=== PATIENT | female | born 1995 | race Caucasian/White ===

== ENCOUNTER → 2020-10-03 16:42 | Outpatient (CLI) | payer OTHER, SELFPAY ==
[2020-10-04 06:45] LABS: Hepatitis BE Antigen Negative (Negative)
[2020-10-04 07:36] LABS: RPR Screen Non Reactive (Non Reactive)
[2020-10-04 13:18] LABS: HIV 1 & 2 Ab/Ag 4th Gen Combo NEGATIVE (NEGATIVE); Hep C Virus Ab w/Reflex Quant NEGATIVE s/c (NEGATIVE)
== END ==
PROVIDERS: PCP Nurse Practitioner Family; Referring Provider Obstetrics & Gynecology; Visit Provider Obstetrics & Gynecology
DX: Z20.2 Contact with and (suspected) exposure to infections with a predominantly sexual mode of transmission (principal)
CPT/HCPCS: 36415; 86592; 86803; 87350; 87389

== ENCOUNTER → 2020-10-15 11:26 | Outpatient (CLI) | payer OTHER, SELFPAY ==
[2020-10-15 14:03] LABS: Alanine Aminotransferase 18 IU/L (<35); Albumin 4.7 g/dL (3.5-5.0); Albumin Globulin Ratio 1.8 (1.0-2.8); Alkaline Phosphatase 42 U/L (38-126); Aspartate Aminotransferase 30 IU/L (14-36); Bilirubin Total 1.5 mg/dL (0.2-1.3); Bilirubin Unconjugated 1.4 mg/dL (0.0-1.1); Globulin 2.6 g/dL (1.7-4.1); HEMOLYSIS < 15 (0-50); Total Protein 7.3 g/dL (6.3-8.2)
[2020-10-15 14:27] LABS: Urine N gonorrhoeae NOT DETECTED
[2020-10-15 14:49] LABS: Urine Chlamydia NOT DETECTED
[2020-10-15 16:01] LABS: COVID19 -Nasal RAPID Negative (Negative)
== END ==
PROVIDERS: Physician Assistant; PCP Nurse Practitioner Family; Referring Provider Obstetrics & Gynecology; Visit Provider Obstetrics & Gynecology
DX: Z20.822 Contact with and (suspected) exposure to COVID-19 (principal); Z20.2 Contact with and (suspected) exposure to infections with a predominantly sexual mode of transmission; R17 Unspecified jaundice
CPT/HCPCS: 36415; 80076; 87491; 87591; 87635

== ENCOUNTER → 2020-10-16 13:40 | Outpatient (CLI) | payer OTHER, SELFPAY ==
--- NOTE | 2020-10-16 13:59 | DI.ECHO.S_ITS ---
:HEART DISEASE : :Ordering Physician: MIKE, : :KENDALL Performed By: Shelly Odom : :Referring: KENDALL MCKEON : + + Interpretation Summary The left ventricle is normal in size and wall thickness. The ejection fraction is estimated to be 55-60%. The right ventricular systolic function is normal. No significant valvular disease. There is no pericardial effusion. The IVC is dilated (diameter is greater than 2.1 cm) yet it collapses greater than 50% with a sniff. This suggests a right atrial pressure of 8 mm Hg. Procedure: A two-dimensional transthoracic echocardiogram with color flow and Doppler was performed. The study quality was technically adequate. There is no prior echocardiogram noted for this patient. The patient was in sinus bradycardia with heart rates between 50-60 bpm during the exam. Left Ventricle: The left ventricle is normal in size and wall thickness. There is no thrombus. The ejection fraction is estimated to be 55-60%. There are no focal wall motion abnormalities. Diastolic parameters suggest probable normal left ventricular diastolic function and normal filling pressures. Right Ventricle: The right ventricle is normal in size and function. The right ventricular systolic function is normal. Atria: The left atrial size is normal. Right atrial size is normal. There is no Doppler evidence for an interatrial shunt. Mitral Valve: The mitral valve leaflets appear to open well. The mitral valve is normal. There is mild mitral regurgitation. The mitral regurgitant jet is eccentrically directed. Aortic Valve: The aortic valve is trileaflet. The aortic valve opens well. There is no aortic valve stenosis. No aortic regurgitation is present. Tricuspid Valve: The tricuspid valve is normal in structure and function. There is trace tricuspid regurgitation. Pulmonary artery pressures cannot be estimated because of the lack of a measurable TR jet velocity but the IVC suggests a CVP of around 8 mmHg. Pulmonic Valve: The pulmonic valve leaflets are thin and pliable; valve motion is normal. There is mild pulmonic regurgitation. Great Vessels: The aortic root is normal size. The dimensions of the ascending aorta are normal. The IVC is dilated (diameter is greater than 2.1 cm) yet it collapses greater than 50% with a sniff. This suggests a right atrial pressure of 8 mm Hg. Pericardium/ Pleura There is no pericardial effusion. There is no pleural effusion. MMode/2D Measurements & Calculations LVIDd: 5.6 cm LVOT diam: 2.1 cm LVIDs: 3.5 cm Ao root diam: 2.5 cm FS: 37.9 % asc Aorta Diam: 2.7 cm IVSd: 0.52 cm Ao Arch Diam (Prox Trans): 2.3 cm LVPWd: 0.65 cm LV chapin. diameter/BSA (cm/m^2): 3.4 LV sys. diameter/BSA (cm/m^2): 2.1 LA A2 area: 20.7 cm2 RA long axis: 4.5 cm LA A4 area: 18.8 cm2 RA area: 14.1 cm2 LA length (vol): 5.0 cm RA vol: 38.0 ml LA vol: 66.1 ml RA : 23.0 ml/m2 LA vol index: 39.9 ml/m2 IVC diam: 2.6 cm RVD1 (basal): 4.3 cm TAPSE: 2.7 cm Doppler Measurements & Calculations Ao V2 max: 140.2 cm/sec LVOT Max Jose Rafael: 116.9 cm/sec Ao V2 mean: 94.3 cm/sec LV V1 max P.5 mmHg Ao max P.9 mmHg LV V1 VTI: 21.5 cm Ao mean P.1 mmHg PEGGY(I,D): 2.6 cm2 Ao V2 VTI: 28.7 cm PEGGY(V,D): 2.9 cm2 sev ratio: 0.75 PEGGY indexed to BSA (cm^2/m^2): 1.6 MV E max jose rafael: 63.0 cm/sec PA V2 max: 92.3 cm/sec MV A max jose rafael: 42.5 cm/sec PA V2 mean: 64.5 cm/sec MV E/A: 1.5 PA mean P.8 mmHg Med Peak E' Jose Rafael: 13.1 cm/sec PA pr(Accel): 27.6 mmHg E/E' med: 4.8 Lat Peak E' Jose Rafael: 22.4 cm/sec E/E' lat: 2.8 E/e' average: 3.8 MV dec time: 0.23 sec SV(LVOT): 76.0 ml Reading Physician:06:25 PM
--- NOTE | 2020-10-16 19:08 | DI.NM.S_ITS ---
DATE OF SERVICE: 10/16/2020 PROCEDURE PERFORMED: Exercise stress test. INDICATION: Exertional chest pain. CARDIAC STRESS: The patient underwent exercise stress test under the supervision of an attending staff. She walked on Corey protocol for 18 minutes and 12 seconds, achieved a maximum heart rate of 190, which was 98 percent of target heart rate. Baseline blood pressure 100/60 mmHg. Peak blood pressure 180/90 mmHg. The patient achieved 16.9 METs of workload and functional aerobic impairment -75 percent. No anginal symptoms. Baseline EKG revealed sinus rhythm with mild sinus bradycardia, at a rate of about 51 beats per minute. During stress, no ischemic changes or significant arrhythmias seen. CONCLUSION: Exercise stress test is negative for inducible ischemia. Excellent exercise capacity. The patient achieved 16.9 METs of workload and functional aerobic impairment -75 percent. Normal hemodynamic response. No significant arrhythmias. No anginal symptoms. Overall, low-risk study. Rosa Duvall - CAYLA/herber/douglas doc#: [id number]/job#: [id number] dd: 10/16/2020 18:02:00 dt: 10/16/2020 18:47:00 DICTATING /COPIES TO: Allegra Landis MD COPIES MNE: MANUELA;
== END ==
PROVIDERS: PCP Nurse Practitioner Family; Referring Provider Nurse Practitioner Family; Visit Provider Nurse Practitioner Family
DX: R07.9 Chest pain, unspecified (principal); R00.1 Bradycardia, unspecified
CPT/HCPCS: 93016; 93017; 93018; 93306

== ENCOUNTER → 2020-10-23 11:29 | Outpatient (CLI) | payer OTHER, SELFPAY ==
--- NOTE | 2020-11-12 08:56 | PM.CARDMON.1 ---
Pipe [employer]orem[employer] Report Referral & Results Date Patient Seen: 10/23/20 Requesting provider: John Christopher Duration of monitoring (days): 7 Diary information: There were 9 patient triggered events and 1 patient diary entry Patient triggered events were associated sinus rhythm and PACs Diary event was associated with sinus rhythm only Data: Minimum heart rate was 31 beats per minute at 03:54 on 10/28/2020 Maximum heart rate was 187 beats per minute at 19:15 on 10/23/2020 Less than 1% of identified beats were ventricular or supraventricular ectopic in origin, which would classify them as rare. 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
== END ==
PROVIDERS: PCP Nurse Practitioner Family; Referring Provider Nurse Practitioner Family; Visit Provider Nurse Practitioner Family
DX: R00.1 Bradycardia, unspecified (principal); R07.9 Chest pain, unspecified
CPT/HCPCS: 93242; 93244

== ENCOUNTER → 2020-11-06 16:21 | Outpatient (CLI) | payer OTHER, SELFPAY ==
--- NOTE | 2020-11-06 16:24 | DI.US.S_ITS ---
PROCEDURE: US ABDOMEN COMPLETE INDICATIONS: elevated bili TECHNIQUE: Real-time scanning was performed of the abdominal and retroperitoneal organs, with image documentation. COMPARISON: None. FINDINGS: Liver: Liver is normal in size and homogeneous in echotexture. Gallbladder: No findings of gallstones or sludge are seen. The gallbladder wall is not thickened, measuring 3 mm or less. No specific pericholecystic fluid is seen. The sonographic Hodgson sign is negative. Biliary ducts: Intrahepatic bile ducts are non-dilated. Extrahepatic bile duct caliber measures 3 mm. Normal is 6-7 mm or less in diameter, or 10 mm or less post-cholecystectomy. Pancreas: Visualized portions of the pancreas are sonographically normal. Spleen: Spleen is normal in size and homogeneous in echotexture. Kidneys: Bowel gas obscures the inferior aspect of the right kidney. The left kidney measures 11.3 cm long. No hydronephrosis or nephrolithiasis. No solid masses. Aorta: Visualized aorta is normal in caliber at less than 3 cm. Iliacs: Proximal common iliac arteries are normal in caliber at less than 2.5 cm. IVC: Intrahepatic inferior vena cava is patent. The IVC is prominent, measuring 3.3 cm, which is not regarded to be frankly pathologic. Miscellaneous: No free abdominal fluid. IMPRESSION: The gallbladder demonstrates a normal sonographic appearance. No biliary dilatation is seen. No significant liver abnormality can be seen. Limited evaluation of the right kidney, with the inferior aspect obscured by bowel gas. Dictated by: Sy De La Vega M.D. on 11/06/2020 at 16:51 Approved by: Sy De La Vega M.D. on 11/06/2020 at 16:53
== END ==
PROVIDERS: PCP Nurse Practitioner Family; Referring Provider Nurse Practitioner Family; Visit Provider Nurse Practitioner Family
DX: R17 Unspecified jaundice (principal)
CPT/HCPCS: 76700

== ENCOUNTER → 2021-05-22 11:18 | Outpatient (CLI) | payer SELFPAY ==
--- NOTE | 2021-05-22 11:31 | DI.RAD.S_ITS ---
PROCEDURE: XR CHEST 2V INDICATIONS: + quant gold TECHNIQUE: 2 views of the chest were acquired. COMPARISON: None. FINDINGS: Surgical changes and devices: None. Lungs and pleura: Lungs are clear. No pleural effusions or pneumothorax. Mediastinum: Mediastinal contours are normal. Heart size is normal. Bones and chest wall: No suspicious bony abnormalities. Soft tissues appear unremarkable. IMPRESSION: No acute cardiopulmonary abnormality. Dictated by: Ceasar Estrada M.D. on 05/22/2021 at 12:36 Approved by: Ceasar Estrada M.D. on 05/22/2021 at 12:36
== END ==
PROVIDERS: Referring Provider Family Medicine; Visit Provider Family Medicine
DX: R76.12 Nonspecific reaction to cell mediated immunity measurement of gamma interferon antigen response without active tuberculosis (principal)
CPT/HCPCS: 71046

== ENCOUNTER → 2021-06-08 10:39 | Outpatient (CLI) | payer BC, SELFPAY ==
[2021-06-08 13:56] LABS: Alanine Aminotransferase 20 IU/L (<35); Albumin 4.6 g/dL (3.5-5.0); Albumin Globulin Ratio 1.6 (1.0-2.8); Alkaline Phosphatase 45 U/L (38-126); Aspartate Aminotransferase 31 IU/L (14-36); Bilirubin Total 1.8 mg/dL (0.2-1.3); Bilirubin Unconjugated 1.9 mg/dL (0.0-1.1); Globulin 2.8 g/dL (1.7-4.1); HEMOLYSIS 30 (0-50); Total Protein 7.4 g/dL (6.3-8.2)
[2021-06-10 04:47] LABS: QuantiFERON Mitogen Value >10.00 IU/mL (.); QuantiFERON Nil Value 0.02 IU/mL (.); QuantiFERON TB Gold Plus Negative (Negative); QuantiFERON TB1 Ag Value 0.06 IU/mL (.); QuantiFERON TB2 Ag Value 0.06 IU/mL (.)
== END ==
PROVIDERS: PCP Family Medicine; Referring Provider Nurse Practitioner Family; Visit Provider Nurse Practitioner Family
DX: R17 Unspecified jaundice (principal); R76.11 Nonspecific reaction to tuberculin skin test without active tuberculosis
CPT/HCPCS: 36415; 80076; 86480

== ENCOUNTER → 2021-07-13 14:54 | Outpatient (CLI) | payer OTHER, SELFPAY ==
[2021-07-13 17:11] LABS: HIV 1 & 2 Ab/Ag 4th Gen Combo NEGATIVE (NEGATIVE)
[2021-07-13 18:39] LABS: Urine N gonorrhoeae NOT DETECTED
[2021-07-13 18:44] LABS: Urine Chlamydia NOT DETECTED
[2021-07-14 05:36] LABS: HBsAg Screen Negative (Negative); Hepatitis A Antibody IgM Negative (Negative); Hepatitis B Core Antibody IgM Negative (Negative); Hepatitis C Antibody <0.1 s/co ratio (0.0-0.9)
[2021-07-14 07:12] LABS: RPR Screen Non Reactive (Non Reactive)
== END ==
PROVIDERS: PCP Family Medicine; Referring Provider Family Medicine; Visit Provider Family Medicine
DX: Z11.3 Encounter for screening for infections with a predominantly sexual mode of transmission (principal)
CPT/HCPCS: 36415; 80074; 86592; 87389; 87491; 87591

== ENCOUNTER → 2022-10-01 09:57 | Outpatient (CLI) | payer OTHER, SELFPAY ==
[2022-10-01 10:45] LABS: Add Manual Diff / Slide Review NO; Basophils Absolute Auto 0 /uL (0-100); Basophils Percent Auto 0.6 % (0-2); Eosinophils Absolute Auto 100 /uL (0-450); Eosinophils Percent Auto 1.2 % (2-4); Hematocrit 42.9 % (36-46); Hemoglobin 15.1 g/dL (12.0-16.0); Lymphocytes Absolute Auto 2000 /uL (1100-4500); Lymphocytes Percent Auto 39.8 % (25-40); Mean Corpuscular HGB Conc 35.1 % (30-36); Mean Corpuscular Hemoglobin 32.1 PG (26-34); Mean Corpuscular Volume 91.3 fL (80-100); Monocytes Absolute Auto 500 /uL (0-900); Monocytes Percent Auto 9.9 % (3-14); Neutrophils Absolute Auto 2400 /uL (1500-7000); Neutrophils Percent Auto 48.5 % (50-75); Platelet Count 228 X10^3/uL (150-400); Red Cell Distribution Width 12.7 % (11.6-14.8); White Blood Cell Count 4.9 X10^3/uL (4.5-11.0)
[2022-10-01 10:55] LABS: Alanine Aminotransferase 19 IU/L (<35); Albumin 4.7 g/dL (3.5-5.0); Albumin Globulin Ratio 1.3 (1.0-2.8); Alkaline Phosphatase 37 U/L (38-126); Aspartate Aminotransferase 28 IU/L (14-36); BUN Creatinine Ratio 18.8 (6-22); Bilirubin Total 2.5 mg/dL (0.2-1.3); Blood Urea Nitrogen 13 mg/dL (7-17); Calcium 9.4 mg/dL (8.4-10.2); Carbon Dioxide 25 mmol/L (22-32); Chloride 102 mmol/L (98-107); Cholesterol 183 mg/dL (140-199); Estimated Glomerular Filt Rate > 60 mL/min (>60); Globulin 3.6 g/dL (1.7-4.1); Glucose 83 mg/dL (70-100); HDL Cholesterol 79 mg/dL (40-60); HEMOLYSIS < 15 (0-50); LDL Cholesterol Calculated 93 mg/dL (<100); Potassium 4.5 mmol/L (3.4-5.1); Sodium 137 mmol/L (137-145); Total Protein 8.3 g/dL (6.3-8.2); Triglycerides 53 mg/dL (35-150)
[2022-10-01 11:35] LABS: TSH w/ Reflex to FT4 1.14 uIU/mL (0.47-4.68)
== END ==
PROVIDERS: PCP Family Medicine; Referring Provider Family Medicine; Visit Provider Family Medicine
DX: I34.0 Nonrheumatic mitral (valve) insufficiency (principal); R00.1 Bradycardia, unspecified; R17 Unspecified jaundice; Z00.00 Encounter for general adult medical examination without abnormal findings
CPT/HCPCS: 36415; 80053; 80061; 84443; 85025

== ENCOUNTER → 2022-10-07 10:26 | Outpatient (CLI) | payer OTHER, SELFPAY ==
--- NOTE | 2022-10-07 10:27 | DI.US.S_ITS ---
PROCEDURE: US ABDOMEN LIMITED INDICATIONS: RIGHT UPPER QUADRANT PAIN TECHNIQUE: Real-time scanning was performed of the abdominal and retroperitoneal organs, with image documentation. COMPARISON: [facility], US, US ABDOMEN COMPLETE, 07/31/2021, 7:10. [facility], US, US ABDOMEN COMPLETE, 11/06/2020, 17:04. FINDINGS: Liver: Liver is normal in size and homogeneous in echotexture. Gallbladder: Within normal limits. No gallstones or gallbladder wall thickening. Biliary ducts: Intrahepatic bile ducts are non-dilated. Extrahepatic bile duct caliber measures 3.4 mm. Normal is 6-7 mm or less in diameter, or 10 mm or less post-cholecystectomy. Pancreas: Visualized portions of the pancreas are sonographically normal. IVC: Intrahepatic inferior vena cava is patent. IMPRESSION: The gallbladder is within normal limits. No gallstones or gallbladder wall thickening. No intra or extrahepatic biliary ductal dilatation. Dictated by: Reji Arndt M.D. on 10/07/2022 at 11:25 Approved by: Reji Arndt M.D. on 10/07/2022 at 11:27
== END ==
PROVIDERS: PCP Family Medicine; Referring Provider Family Medicine; Visit Provider Family Medicine
DX: R10.11 Right upper quadrant pain (principal)
CPT/HCPCS: 76705

== ENCOUNTER → 2023-02-12 12:29 | Outpatient (CLI) | payer OTHER, SELFPAY ==
[2023-02-12 14:49] LABS: Alanine Aminotransferase 16 IU/L (<35); Albumin 4.7 g/dL (3.5-5.0); Albumin Globulin Ratio 1.4 (1.0-2.8); Alkaline Phosphatase 41 U/L (38-126); Aspartate Aminotransferase 29 IU/L (14-36); Bilirubin Total 1.4 mg/dL (0.2-1.3); Bilirubin Unconjugated 1.2 mg/dL (0.0-1.1); Globulin 3.3 g/dL (1.7-4.1); HEMOLYSIS < 15 (0-50)
== END ==
PROVIDERS: PCP Family Medicine; Referring Provider Internal Medicine Gastroenterology; Visit Provider Internal Medicine Gastroenterology
DX: R17 Unspecified jaundice (principal)
CPT/HCPCS: 36415; 80076

== ENCOUNTER → 2024-01-30 16:22 | Outpatient (CLI) | payer OTHER, SELFPAY ==
--- NOTE | 2024-01-30 16:24 | DI.RAD.S_ITS ---
PROCEDURE: XR KNEE LT 3V INDICATIONS: Left knee pain TECHNIQUE: 3 views of the knee were acquired. COMPARISON: None. FINDINGS: Bones: No fractures or dislocations. No suspicious bony lesions. Soft tissues: No joint effusion. No suspicious soft tissue calcifications. IMPRESSION: No acute bony abnormality or significant effusion. Dictated by: Mindy Luis MD, PhD on 01/31/2024 at 10:44 Approved by: Mindy Luis MD, PhD on 01/31/2024 at 10:45
== END ==
PROVIDERS: PCP Family Medicine; Referring Provider Nurse Practitioner Family; Visit Provider Nurse Practitioner Family
DX: S86.912A Strain of unspecified muscle(s) and tendon(s) at lower leg level, left leg, initial encounter (principal); X58.XXXA Exposure to other specified factors, initial encounter
CPT/HCPCS: 73562

== ENCOUNTER → 2024-02-27 16:37 | Outpatient (CLI) | payer OTHER, SELFPAY ==
--- NOTE | 2024-02-27 16:38 | DI.MRI.S_ITS ---
PROCEDURE: MR KNEE LT WO CON INDICATIONS: LT knee oint laxity and swelling after injury 01/28 TECHNIQUE: Noncontrast sagittal PD fast spin echo and T2 fast spin echo with fat saturation, sagittal 3-D FLASH with fat saturation; coronal T1 spin echo and PD fast spin echo with fat saturation, and axial PD fast spin echo with fat saturation through the knee. COMPARISON: [facility], CR, XR KNEE LT 3V, 01/30/2024, 16:25. FINDINGS: Image quality: Excellent. Bones: Confluent marrow edema is present throughout the lateral tibial plateau and proximal tibial metadiaphysis (13/21) as well as the lateral femoral condyle (8/15). There are no identifiable T1 hypointense fracture lines. There is mild anterior translation of the tibia with respect to the distal femur. Joints: There is small-moderate knee joint effusion. There is no significant knee osteoarthritis. Kang's cyst: None. Menisci: There is mild intermediate signal at the posterior horn of the medial meniscus along with mild discontinuity at the superior popliteomeniscal fascicle (10/10). There is an obliquely oriented tear of the body of the lateral meniscus extending toward the inferior articular surface (/). Additionally, the posterior root attachment of the lateral meniscus is not identified in its entirety (13/25). Cruciate ligaments: There is a full-thickness midsubstance tear of the anterior cruciate ligament (10/17). The posterior cruciate ligament is normal. Collateral ligaments: There is a full-thickness tear of the deep medial meniscofemoral ligament at the femoral attachment point (13/20; 8/16). There is partial thickness tearing of the medial patellofemoral ligament at the femoral attachment point (8/17). The medial collateral ligament complex is otherwise normal. The lateral collateral ligament complex is normal. Popliteus Muscle/Tendon: The popliteus muscle and tendon are normal. Extensor mechanism: The quadriceps tendon is normal. The patellar tendon is normal, although with small entheseal calcifications at the anterior tibial tuberosity (9/19). The medial and lateral patellar retinacular attachments are normal. Articular cartilage: There is no significant articular cartilage defect. Other: No other acute findings. IMPRESSION: 1. Full-thickness anterior cruciate ligament tear with associated small-moderate joint effusion, and microtrabecular fractures at the distal femur and proximal tibia. 2. Possible (slice thickness and volume averaging limit confirmation) ramp lesion at the posterior horn of the medial meniscus along with full-thickness tearing at the deep medial meniscofemoral ligament. 3. Oblique tear of the body of the lateral meniscus with possible additional tearing at the posterior horn-posterior root attachment. 4. Partial thickness tearing of the medial patellofemoral ligament at the femoral attachment point. Dictated by: Doug Calabrese M.D. on 02/28/2024 at 12:18 Approved by: Doug Calabrese M.D. on 02/28/2024 at 12:37
== END ==
PROVIDERS: PCP Family Medicine; Referring Provider Nurse Practitioner Family; Visit Provider Nurse Practitioner Family
DX: S83.512A Sprain of anterior cruciate ligament of left knee, initial encounter (principal); S83.8X2A Sprain of other specified parts of left knee, initial encounter; S83.282A Other tear of lateral meniscus, current injury, left knee, initial encounter; S76.112A Strain of left quadriceps muscle, fascia and tendon, initial encounter; S80.02XA Contusion of left knee, initial encounter; S86.912A Strain of unspecified muscle(s) and tendon(s) at lower leg level, left leg, initial encounter; M23.8X2 Other internal derangements of left knee; M25.462 Effusion, left knee; M25.562 Pain in left knee; X58.XXXA Exposure to other specified factors, initial encounter
CPT/HCPCS: 73721